=== PATIENT | male | born 1970 | race Asian ===

== ENCOUNTER 2025-01-22 11:37 | Emergency (ER) | payer MEDICAID, OTHER ==
[~2025-01-22] VITALS: Ht 165.1 cm; Wt 68.0 kg
[2025-01-22 13:17] VITALS: TEMP 97.8
[2025-01-22 17:40] VITALS: BP 113/82; PULSE 89; RESP 20; O2SAT 99
[2025-01-22] MEDS ORDERED: TRAM50TA5 PO (17:46)
[2025-01-22] MEDS: TraMADol HCL 50 MG TABLET PO ONE (17:47)
== END 2025-01-22 21:46 | disposition home or self-care (01) ==
LOC: EDBD 11:37 → EMS 11:37
DX: S22.41XA Multiple fractures of ribs, right side, initial encounter for closed fracture (principal); S42.021A Displaced fracture of shaft of right clavicle, initial encounter for closed fracture; V13.4XXA Pedal cycle driver injured in collision with car, pick-up truck or van in traffic accident, initial encounter; Y93.89 Activity, other specified; Y92.89 Other specified places as the place of occurrence of the external cause; Y99.8 Other external cause status
CPT/HCPCS: 71046; 71250; 82962; 99284

== ENCOUNTER 2025-07-02 15:49 | Emergency (ER) | payer OTHER ==
[~2025-07-02] VITALS: Ht 170.2 cm; Wt 75.0 kg
[~2025-07-02 15:49] MED LIST: TRAM50TA5 PO
[2025-07-02 15:52] VITALS: TEMP 98
[2025-07-02] MEDS ORDERED: ASPI-1444 PO (15:53)
[2025-07-02] MEDS ORDERED: LANS-78 PO (15:53)
[2025-07-02] MEDS ORDERED: QUET50TA24 PO (15:53)
[2025-07-02] MEDS ORDERED: ATOR40TA71 PO (15:53)
[2025-07-02] MEDS ORDERED: PROP10TA72 PO (15:53)
[2025-07-02] MEDS ORDERED: HYDR25TA83 PO (15:53)
[2025-07-02] MEDS ORDERED: BACL10TA PO (15:53)
[2025-07-02] MEDS ORDERED: OLAN5TAB77 PO (15:53)
[2025-07-02] MEDS ORDERED: DOCU100C33 PO (15:53)
[2025-07-02] MEDS ORDERED: RIVA20TA PO (15:53)
[2025-07-02 19:02] LABS: PLATELET COUNT (AUTO) 312 K/uL (150-450); RED BLOOD CELL COUNT(AUTO) 4.76 MIL/uL (4.50-5.90); RED CELL DISTRIBUTION WIDTH 14.7 % (11.5-14.5); WHITE BLOOD COUNT (AUTO) 10.9 K/uL (4.5-11.0)
[2025-07-02 19:11] LABS: CALCIUM, TOTAL 9.0 mg/dL (8.8-10.5); CREATININE 1.13 mg/dL (0.60-1.30); GLOMERULAR FILTR. RATE CALC > 60 mL/min (>60); GLUCOSE,RANDOM 103 mg/dL (70-110); SODIUM SERUM 141 mmol/L (136-145); UREA NITROGEN, BLOOD 22 mg/dL (7-18)
[2025-07-02 19:32] LABS: TROPONIN I-HIGH SENSITIVITY 103 ng/L (<76)
[2025-07-02 19:45] LABS: BAND NEUTROPHILS % (MANUAL) 4 % (0-5); EOSINOPHILS % (MANUAL) 8 % (1-6); LYMPHOCYTES % (MANUAL) 28 % (22-44); MONOCYTES % (MANUAL) 8 % (2-9); SEGMENTED NEUTROPHILS % 52 % (40-70)
[2025-07-02] MEDS: ASPIRIN 325 MG TABLET PO ONE (20:49)
[2025-07-02] MEDS: NITROGLYCERIN 2% (1 GM=INCH) OINTMENT PACKET TP ONE (20:49)
[2025-07-02 21:21] LABS: APPEARANCE,URINE CLEAR (CLEAR); GLUCOSE, URINE (UA) NEGATIVE (NEGATIVE); LEUKOCYTE ESTERASE ,URINE NEGATIVE (NEGATIVE); NITRATE,URINE NEGATIVE (NEGATIVE); OCCULT BLOOD,URINE NEGATIVE (NEGATIVE); SPECIFIC GRAVITIY, URINE 1.025 (1.003-1.030)
[2025-07-02 21:37] LABS: SQUAMOUS EPITHELIAL CELL,UR Rare /LPF (None Seen)
[2025-07-02 22:00] VITALS: BP 112/69; PULSE 68; RESP 18; O2SAT 99
[2025-07-02 22:00] LABS: TROPONIN I-HIGH SENSITIVITY 93 ng/L (<76)
== END 2025-07-02 23:19 | disposition home or self-care (01) ==
LOC: EMS 15:49
DX: I69.30 Unspecified sequelae of cerebral infarction (principal); I10 Essential (primary) hypertension; E78.00 Pure hypercholesterolemia, unspecified; Z79.01 Long term (current) use of anticoagulants; Z79.82 Long term (current) use of aspirin; Z79.899 Other long term (current) drug therapy
CPT/HCPCS: 71045; 80048; 81001; 84484; 85025; 93005; 99285; 36415-L1; 36415-TC